=== PATIENT | female | born 1950 | race Caucasian/White ===

== ENCOUNTER → 2017-01-02 | Outpatient (CLI) | payer OTHER, MEDICARE | LOC: FIMAGING 16:26 | PROVIDERS: ATTEND Orthopaedic Surgery | DX: M22.41 Chondromalacia patellae, right knee (principal); M23.8X1 Other internal derangements of right knee; M76.31 Iliotibial band syndrome, right leg ==

== ENCOUNTER → 2017-04-10 | Outpatient (CLI) | payer OTHER, MEDICARE | LOC: FIMAGING 09:31 | PROVIDERS: ATTEND Family Medicine | DX: Z12.31 Encounter for screening mammogram for malignant neoplasm of breast (principal) | CPT/HCPCS: G0202 ==

== ENCOUNTER 2017-04-23 13:24 | Observation (INO) | payer OTHER, MEDICARE ==
--- NOTE | 2017-04-23 13:45 | EDPHY ---
H & P Time Seen by Provider: 04/23/17 13:42 HPI/ROS: CHIEF COMPLAINT: Left-sided visual change, left facial numbness HISTORY OF PRESENT ILLNESS: The patient is a 66-year-old female who presents emergency department with new onset left-sided visual field deficit. This started at 1300. 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 She felt it was present in both eyes. 15 minutes later her visual changed improved. She then developed some mild tingling in her left face. That is nearly resolved at this point. She has had no headache or neck pain. No recent trauma or fall. She has had no recent fevers or chills. REVIEW OF SYSTEMS: My complete review of systems is negative except as mentioned in the HPI. Past Medical/Surgical History: Hypothyroidism Past surgical history: Noncontributory Social history: The patient does not smoke. She drinks wine occasionally Family history: No CVA Smoking Status: Never smoked Physical Exam: Vitals noted GENERAL: Well-appearing, in no acute distress, alert. HEENT: Eyes normal to inspection, normal pharynx, no signs of dehydration. Eyelids: Normal inspection. Conjunctiva and sclera: Normal inspection. Not injected. Corneas: Normal inspection. EOMs: Intact. Pupils: PERRL, normal accommodation. Posterior segments: Normal funduscopic exam NECK: No thyromegaly, no lymphadenopathy, supple. RESPIRATORY: Clear to auscultation bilaterally, no rales, rhonchi or wheezing. CVS: Regular rate and rhythm, no rubs, murmurs, or gallops. ABDOMEN: Soft, nontender, nondistended, no organomegaly. BACK: Normal to inspection, no CVA tenderness. SKIN: Normal color, no rash, warm, dry. No pallor. EXTREMITIES: No pedal edema, no calf tenderness, no Homans sign or cords, no joint swelling. NEURO/PSYCH: Higher functions: Alert and Oriented x3. Normal speech and cognition. Normal mood and affect. No visual field cuts. Cranial nerves: Normal as tested. Cerebellar: Normal as tested. Good finger to nose, good [id number], normal gait. Peripheral exam: Normal motor exam. Normal sensation. Normal reflexes. I performed an NIHSS. Score was 0 Constitutional: Initial Vital Signs Temperature (C) 36.5 C 04/23/17 13:29 Heart Rate 62 04/23/17 13:29 Respiratory Rate 18 04/23/17 13:29 Blood Pressure 133/80 H 04/23/17 13:29 O2 Sat (%) 99 04/23/17 13:29 O2 Delivery Mode Room Air Allergies/Adverse Reactions: acetaminophen [From Tylenol] Allergy (Verified 04/23/17 13:26) ampicillin Allergy (Verified 04/23/17 13:26) aspirin Allergy (Verified 04/23/17 13:26) ibuprofen [From Advil] Allergy (Verified 04/23/17 13:26) Sulfa (Sulfonamide Antibiotics) Allergy (Verified 04/23/17 13:26) multiple allergies Allergy (Uncoded 05/27/14 16:41) Home Medications: Medication Instructions Recorded ARMOUR THYROID 05/27/14 Fish Oil 05/27/14 Vitamin B Activated 05/27/14 Medical Decision Making - Diagnostics EKG Interpretation: EKG shows normal sinus rhythm, [normal rate, normal axis, normal intervals]. There are [no ST or T-wave abnormalities]. [EKG is normal as interpreted by me]. Imaging Results: Imaging Impressions Head CT 04/23/17 13:50 Impression: Cortical nodule within the high right parietal lobe and subcortical nodule high left parietal lobe, with both lesions demonstrating vasogenic edema, without herniation. The bilaterality of these lesions suggests metastatic disease as the most likely etiology. Recommend MRI of the brain without and with contrast for further characterization. Results called to Dr. Alonzo at 2:15 PM. ED Course/Re-evaluation: I met the patient on arrival to the emergency department. Patient stated her symptoms started at 1300. When I evaluated the patient patient she had an NIHSS equals 0 I discussed the plan with the patient answered all her questions. An IV was placed. Laboratory studies and head CT were ordered. I rechecked the patient. She had no focal deficits on reexamination. Head CT: Please refer the dictated report. I discussed the case with Dr. Frederick. The patient has bilateral parietal lobe lesions. There is mild edema. Dr. Frederick recommended MRI imaging. MRI with and without contrast was ordered. I discussed the results with the patient. On re-evaluation she had no symptoms. She had a nonfocal neuro exam. I discussed the case with Dr. Curiel from the hospitalist service. He will admit the patient for further care. Differential Diagnosis: My differential includes but is not limited to ischemic CVA, hemorrhagic CVA, dissection, aneurysm, CRAO, CRVO, retinal detachment, electrolyte abnormality, sugar abnormality, ACS, acute WI - Data Points Laboratory Results: Laboratory Results 04/23/17 13:50 04/23/17 13:49 04/23/17 04/23/17 04/23/17 13:50 13:50 13:49 WBC 8.19 10^3/uL 10^3/uL (3.80-9.50) RBC 5.03 10^6/uL 10^6/uL (4.18-5.33) Hgb 15.6 g/dL g/dL (12.6-16.3) Hct 45.7 % % (38.0-47.0) MCV 90.9 fL fL (81.5-99.8) MCH 31.0 pg pg (27.9-34.1) MCHC 34.1 g/dL g/dL (32.4-36.7) RDW 13.8 % % (11.5-15.2) Plt Count 315 10^3/uL 10^3/uL (150-400) MPV 11.0 fL fL (8.7-11.7) Neut % (Auto) 54.9 % % (39.3-74.2) Lymph % (Auto) 34.8 % % (15.0-45.0) [place] % (Auto) 8.1 % % (4.5-13.0) Eos % (Auto) 1.1 % % (0.6-7.6) Baso % (Auto) 0.9 % % (0.3-1.7) Nucleat RBC Rel Count 0.0 % % (0.0-0.2) Absolute Neuts (auto) 4.50 10^3/uL 10^3/uL (1.70-6.50) Absolute Lymphs (auto) 2.85 10^3/uL 10^3/uL (1.00-3.00) Absolute Monos (auto) 0.66 10^3/uL 10^3/uL (0.30-0.80) Absolute Eos (auto) 0.09 10^3/uL 10^3/uL (0.03-0.40) Absolute Basos (auto) 0.07 10^3/uL 10^3/uL (0.02-0.10) Absolute Nucleated RBC 0.00 10^3/uL 10^3/uL (0-0.01) Immature Gran % 0.2 % % (0.0-1.1) Immature Gran # 0.02 10^3/uL 10^3/uL (0.00-0.10) PT 12.6 SEC SEC (12.0-15.0) INR 0.95 (0.83-1.16) APTT 32.0 SEC SEC (23.0-38.0) Sodium 140 mEq/L mEq/L (134-144) Potassium 3.7 mEq/L mEq/L (3.5-5.2) Chloride 103 mEq/L mEq/L (97-110) Carbon Dioxide 23 mEq/l mEq/l (22-31) Anion Gap 14 mEq/L mEq/L (8-16) BUN 15 mg/dL mg/dL (7-23) Creatinine 0.6 mg/dL mg/dL (0.6-1.0) Estimated GFR > 60 Glucose 83 mg/dL mg/dL (70-100) Calcium 9.6 mg/dL mg/dL (8.5-10.4) Troponin I Pending Departure - Departure Disposition: Home, Routine, Self-Care Clinical Impression: Hemianopia Condition: Good Instructions: Blurred Vision (ED) Referrals: Kenyatta De Guzman MD [Primary Care Provider] - As per Instructions
--- NOTE | 2017-04-23 13:46 | CPEKG ---
Heart Rate: 58 RR Interval: 1034 P-R Interval: 164 QRSD Interval: 90 QT Interval: 408 QTC Interval: 401 P Erie: 40 QRS Erie: 9 T Wave Erie: 65 EKG Severity - NORMAL ECG - EKG Impression: SINUS RHYTHM Electronically Signed By: Lena Alonzo 23-Apr-2017 15:37:30
[2017-04-23] MEDS ORDERED: NS 500 ML IV ONE (13:49)
[2017-04-23 14:18] LABS: % IMMATURE GRANULYOCYTES 0.2 % (0.0-1.1); ABSOLUTE IMMATURE GRANULOCYTES 0.02 10^3/uL (0.00-0.10); ADD DIFF? NO; ADD MORPH? NO; ADD SCAN? NO; ATYPICAL LYMPHOCYTE FLAG 0 (0-99); FRAGMENT RBC FLAG 0 (0-99); HEMATOCRIT 45.7 % (38.0-47.0); HEMOGLOBIN 15.6 g/dL (12.6-16.3); LEFT SHIFT FLG 0 (0-99); LIPEMIA HEMOLYSIS FLAG 90 (0-99); MEAN CELL HEMOGLOBIN CONCENTR. 34.1 g/dL (32.4-36.7); MEAN CELL VOLUME 90.9 fL (81.5-99.8); PLATELET CLUMPS FLAG 10 (0-99); PLATELET COUNT 315 10^3/uL (150-400); RED BLOOD CELL COUNT 5.03 10^6/uL (4.18-5.33); RED CELL DISTRIBUTION WIDTH 13.8 % (11.5-15.2)
[2017-04-23 14:24] LABS: INR 0.95 (0.83-1.16); PROTIME(PATIENT) 12.6 SEC (12.0-15.0)
[2017-04-23 14:32] LABS: ANION GAP 14 mEq/L (8-16); CALCIUM 9.6 mg/dL (8.5-10.4); CARBON DIOXIDE 23 mEq/l (22-31); CHLORIDE 103 mEq/L (97-110); CREATININE 0.6 mg/dL (0.6-1.0); GLOMERULAR FILTRATION RATE > 60; GLUCOSE 83 mg/dL (70-100); POTASSIUM 3.7 mEq/L (3.5-5.2); SODIUM 140 mEq/L (134-144)
[2017-04-23] MEDS ORDERED: ONDANSETRON DISINTEGRATING 4 MG TAB PO PRN (14:36)
[2017-04-23] MEDS ORDERED: ONDANSETRON 4 MG/2 ML VIAL IVP PRN (14:36)
[2017-04-23 14:44] LABS: TROPONIN I < 0.012 ng/mL (0-0.034)
--- NOTE | 2017-04-23 15:04 | PDGENHP ---
History and Physical - Chief Complaint Acute Hemianopsia - History of Present Illness PCP: Dr. Joshi HPI: 66-year-old female presenting with acute lorene anopsia characterized as left-sided visual field cut, completely black, with onset of symptoms at 12:53 p.m. on the day of presentation, duration approximately 15-20 minutes. Was associated with some paresthesias located along the left jaw radiating into the left ear, as well as a subsequent headache. The patient reports that the symptoms began while she was at rest and she can specifically described them as left visual field cut noted on people's faces as well as a clock. She reports that both eyes were affected as the visual field cut persisted despite her opening and closing each eye individually. The symptoms have occurred in the context of approximately 1 month of physical spatial changes most notable in her bilateral hands. The patient has noted these changes because she is a professional seamstress and she has noted that she is having difficulty swallowing unless she is specifically looking at the object in question. She has also noted reduced spatial awareness when she sits down to use the bathroom and is only able to find her toilet paper if she is directly looking at it. She otherwise denies any hematochezia, hematuria, melena, cough, fever, chills, but she has experienced intentional weight loss over the past several months. History Information - Allergies/Home Medication List Allergies/Adverse Reactions: acetaminophen [From Tylenol] Allergy (Verified 04/23/17 13:26) ampicillin Allergy (Verified 04/23/17 13:26) aspirin Allergy (Verified 04/23/17 13:26) ibuprofen [From Advil] Allergy (Verified 04/23/17 13:26) Sulfa (Sulfonamide Antibiotics) Allergy (Verified 04/23/17 13:26) multiple allergies Allergy (Uncoded 05/27/14 16:41) Home Medications: ARMOUR THYROID 05/27/14 [Last Taken Unknown] Fish Oil 05/27/14 [Last Taken Unknown] Vitamin B Activated 05/27/14 [Last Taken Unknown] I have personally reviewed and updated: family history, medical history, social history, surgical history - Past Medical History Additional medical history: noncritical carotid stenosis monitored annually. Hypothyroidism. Mild hyperlipidemia. Diverticulosis - Surgical History Additional surgical history: most recent colonoscopy 7 years ago. Most recent Pap smear 2 years ago with subsequent hysterectomy - Family History Additional family history: father with renal cell carcinoma as well as atrial fibrillation, mother with coronary artery disease - Social History Smoking Status: Never smoked Alcohol Use: Occasionally Drug Use: None Additional social history: normally physically active and engages in hikes, she works as a seamstress Review of Systems ROS: 10pt was reviewed & negative except for what was stated in HPI & below EENMT: Reports: other (left-sided lorene anopsia) Neurological: Reports: other ( left facial paresthesia) Physical Exam Temp Pulse Resp BP Pulse Ox 36.5 C 62 18 133/80 H 99 04/23/17 13:29 04/23/17 13:29 04/23/17 13:29 04/23/17 13:29 04/23/17 13:29 Constitutional: no apparent distress, appears nourished, not in pain Eyes: PERRL, anicteric sclera, EOMI Ears, Nose, Mouth, Throat: moist mucous membranes, hearing normal, ears appear normal, no oral mucosal ulcers Cardiovascular: regular rate and rhythym, no murmur, rub, or gallop, No edema Respiratory: no respiratory distress, no rales or rhonchi, clear to auscultation Gastrointestinal: normoactive bowel sounds, soft, non-tender abdomen, no palpable masses Genitourinary: no bladder fullness, no bladder tenderness Skin: warm, normal color, no rashes or abrasions, no fluctuance, no induration, No mottled Neurologic: AAOx3, sensation intact bilaterally, CN II-XII Intact, other ( rqvyai-lq-kjsk intact, wcnd-db-noso intact), No weakness, No facial droop Psychiatric: interacting appropriately, not anxious, not encephalopathic, thought process linear Lab Data & Imaging Review 04/23/17 13:50 04/23/17 13:49 WBC 8.19 10^3/uL (3.80-9.50) 04/23/17 13:50 RBC 5.03 10^6/uL (4.18-5.33) 04/23/17 13:50 Hgb 15.6 g/dL (12.6-16.3) 04/23/17 13:50 Hct 45.7 % (38.0-47.0) 04/23/17 13:50 MCV 90.9 fL (81.5-99.8) 04/23/17 13:50 MCH 31.0 pg (27.9-34.1) 04/23/17 13:50 MCHC 34.1 g/dL (32.4-36.7) 04/23/17 13:50 RDW 13.8 % (11.5-15.2) 04/23/17 13:50 Plt Count 315 10^3/uL (150-400) 04/23/17 13:50 MPV 11.0 fL (8.7-11.7) 04/23/17 13:50 Neut % (Auto) 54.9 % (39.3-74.2) 04/23/17 13:50 Lymph % (Auto) 34.8 % (15.0-45.0) 04/23/17 13:50 Hand % (Auto) 8.1 % (4.5-13.0) 04/23/17 13:50 Eos % (Auto) 1.1 % (0.6-7.6) 04/23/17 13:50 Baso % (Auto) 0.9 % (0.3-1.7) 04/23/17 13:50 Nucleat RBC Rel Count 0.0 % (0.0-0.2) 04/23/17 13:50 Absolute Neuts (auto) 4.50 10^3/uL (1.70-6.50) 04/23/17 13:50 Absolute Lymphs (auto) 2.85 10^3/uL (1.00-3.00) 04/23/17 13:50 Absolute Monos (auto) 0.66 10^3/uL (0.30-0.80) 04/23/17 13:50 Absolute Eos (auto) 0.09 10^3/uL (0.03-0.40) 04/23/17 13:50 Absolute Basos (auto) 0.07 10^3/uL (0.02-0.10) 04/23/17 13:50 Absolute Nucleated RBC 0.00 10^3/uL (0-0.01) 04/23/17 13:50 Immature Gran % 0.2 % (0.0-1.1) 04/23/17 13:50 Immature Gran # 0.02 10^3/uL (0.00-0.10) 04/23/17 13:50 PT 12.6 SEC (12.0-15.0) 04/23/17 13:50 INR 0.95 (0.83-1.16) 04/23/17 13:50 APTT 32.0 SEC (23.0-38.0) 04/23/17 13:50 Sodium 140 mEq/L (134-144) 04/23/17 13:49 Potassium 3.7 mEq/L (3.5-5.2) 04/23/17 13:49 Chloride 103 mEq/L (97-110) 04/23/17 13:49 Carbon Dioxide 23 mEq/l (22-31) 04/23/17 13:49 Anion Gap 14 mEq/L (8-16) 04/23/17 13:49 BUN 15 mg/dL (7-23) 04/23/17 13:49 Creatinine 0.6 mg/dL (0.6-1.0) 04/23/17 13:49 Estimated GFR > 60 04/23/17 13:49 Glucose 83 mg/dL (70-100) 04/23/17 13:49 Calcium 9.6 mg/dL (8.5-10.4) 04/23/17 13:49 Troponin I < 0.012 ng/mL (0-0.034) 04/23/17 13:49 Visualized and Interpreted EKG results: Yes EKG Interpretation: Positive for: other ( normal sinus rhythm) Assessment & Plan Assessment: 66-year-old female presenting with left-sided lorene anopsia and paresthesias in the setting of newly diagnosed brain lesions with vasogenic edema Plan: 1. Hemianopsia. Acute, new from this provider, further workup indicated. Etiologies include newly diagnosed brain lesions verses TIA versus complex migraine. - patient reports very similar symptoms approximately 38 years ago which were diagnosed as a complex migraine after further workup, she has not experienced subsequent symptoms since that time - patient does have known carotid stenosis which has been described as non flow limiting, will order outside records from her PCP office and consider CT angiogram if malignant workup is negative - monitor on telemetry given her family history of AFib and the possibility this could have been a TIA - get MRI of the brain with and without contrast if it does demonstrate overt lesions with vasogenic edema, we will initiate of malignancy workup including CT of the chest abdomen and pelvis with IV contrast as I suspect the primary may be a renal cell carcinoma - order outside records including most recent mammogram, previous mammogram in our system is from 02/11/2016 demonstrating moderate density breast tissue but negative - 2010 skin biopsy demonstrating actinic and seborrheic keratoses but patient denies any other concerning skin lesions at this time - if above is all negative, would recommend pursuing colonoscopy, has previously seen Dr. Wood - given that her head CT demonstrates no evidence of midline shift, will hold on steroids for the aforementioned lesions until MRI has been obtained - neurology consultation placed 2. Bilateral parietal lesions with vasogenic edema. Acute, new diagnosis, hold steroids as outlined above 3. Hypothyroidism. Continue home medication Diet. Cardiac Prophylaxis. High risk patient, SCDs, pharm contraindicated given possible brain lesions Code. Full Disposition. Anticipated discharge is 04/24/2017, pending further workup as outlined above. I have discussed patient's presentation with Dr. Francois, we both agree that the patient should receive an urgent workup for above and receive Neurology consultation.
[2017-04-23] MEDS ORDERED: GADOBUTROL 10 ML VIAL IVP ONE (16:05)
[2017-04-23] MEDS ORDERED: IOPAMIDOL (ISOVUE 370) 100 ML BTL IV ONE (19:09)
[2017-04-23] MEDS ORDERED: IOPAMIDOL (ISOVUE-300) 100 ML BTL ONE (19:11)
[2017-04-23] MEDS ORDERED: GOLYTELY 4000 ML BTL ONE (22:25)
[2017-04-23] MEDS ORDERED: GOLYTELY 4000 ML BTL PO ONE (22:29)
[2017-04-23] MEDS: DEXAMETHASONE 4 MG TAB PO SCH (22:48)
--- NOTE | 2017-04-23 22:53 | HOSPPROG ---
Hospitalist Progress Note Assessment/Plan: Prolonged service beyond the initial 70 minutes spent with the patient for a total of 105 minutes spent, direct patient care, [id number] with patient and her daughter, at bedside for an additional 35 minutes, from 9:50 p.m. to 10:25 p.m., addressing the following: -shared with the patient and her daughter that she most likely has metastatic malignancy -patient's daughter very supportive, patient reasonably distressed over the new diagnosis, she is fearful that this is terminal -potential diagnostic workup discussed with patient, we have agreed to pursue least invasive approach is 1st -discussed with Dr. Galarza and Dr. Wood, plan for colonoscopy 1st in a.m. to determine whether she has a primary colon lesion and if not, then we will pursue CT-guided biopsy of the left lung mass 2nd -discussed with Dr. Edwards, he has recommended initiation of dexamethasone 4 mg three times daily and he will consult with the patient in the a.m. -patient will initiate GoLYTELY prep now -will be NPO in a.m. -the plan is for her to have a tissue did sample for pathology available after her diagnostic workup tomorrow and she can most likely be discharged home with outpatient follow-up at [facility] once that has been accomplished -I would recommend close outpatient supportive counseling through our healthcare project manager -I counseled the patient that her neurologic symptoms on presentation will most likely stabilize and improve in the short term with the addition of steroids to shrink the vasogenic edema -the patient is very hesitant to initiate steroids given her history of osteoporosis and her risk of fracture, will check a vitamin D level in the a.m. and the patient may elect for rapid outpatient steroid reduction in dosage but she is amenable to initiating them at this time Objective: Vital Signs Temp Pulse Resp BP Pulse Ox 36.6 C 66 17 132/73 H 89 L 04/23/17 19:48 04/23/17 19:48 04/23/17 19:48 04/23/17 19:48 04/23/17 19:48 04/22/17 04/23/17 04/24/17 05:59 05:59 05:59 Intake Total 500 Balance 500 PT 12.6 SEC (12.0-15.0) 04/23/17 13:50 INR 0.95 (0.83-1.16) 04/23/17 13:50 ICD10 Worksheet Patient Problems: Problems Problem Status Onset Hemianopia Acute
[2017-04-24 05:01] LABS: INR 1.02 (0.83-1.16); PROTIME(PATIENT) 13.3 SEC (12.0-15.0)
[2017-04-24 05:23] LABS: ALANINE AMINOTRANSFERASE 29 IU/L (9-52); ALBUMIN 4.1 g/dL (3.5-5.0); ALKALINE PHOSPHATASE 81 IU/L (38-126); ANION GAP 9 mEq/L (8-16); ASPARTATE AMINOTRANSFERASE 35 IU/L (14-46); BILIRUBIN,TOTAL 0.5 mg/dL (0.1-1.4); CALCIUM 9.8 mg/dL (8.5-10.4); CARBON DIOXIDE 25 mEq/l (22-31); CHLORIDE 110 mEq/L (97-110); CREATININE 0.5 mg/dL (0.6-1.0); GLOMERULAR FILTRATION RATE > 60; GLUCOSE 133 mg/dL (70-100); POTASSIUM 3.7 mEq/L (3.5-5.2); SODIUM 144 mEq/L (134-144)
[2017-04-24] MEDS: DEXAMETHASONE 4 MG TAB PO SCH ×2 (08:49→17:26)
[2017-04-24] MEDS ORDERED: Herbals/Supplements -Info Only PO SCH (09:00)
[2017-04-24] MEDS ORDERED: THYROID 60 MG TAB PO SCH (09:00)
--- NOTE | 2017-04-24 09:33 | GCON ---
[f rep st] CONSULTATION NEUROLOGIC CONSULT HISTORY OF PRESENT ILLNESS: The patient is a 66-year-old woman, whom I am asked to see in neurologi c consultation regarding suspected brain metastases, with some neurologic complaints involving visio n and discoordination in the upper extremities. The patient says that she really started to notice some changes a few weeks ago, where activities such as reaching for toilet paper in the middle of night seemed surprisingly difficult. She was having trouble seeing out to her right. She has als o noticed some discoordination with her hands, such as putting her hair into a ponytail. She was no t sure what was accounting for this. She came to the emergency room yesterday, and had also noted s ome left facial numbness and some left-sided visual changes. It had started around 1300. She perce ived both eyes were affected, and it all resolved after about 15 minutes, then she got the tingling in her face. She is not having any significant headache or fever, chills, nausea, vomiting, or diar montserrat. However, she says she has just not been feeling like her usual self over the last few weeks. In the course of her workup, she had imaging obtained, with head CT, followed by brain MRI, and the changes show bilateral parietal, cortical, and subcortical ring-enhancing lesions, with a vasogenic edema, highly suspicious for metastatic disease. She has had CTA of the neck, which is unremarkabl e. She had CT scan of the chest showing a 1.5 x 1.8 x 3 cm lung mass suspicious for carcinoma. She has received Decadron for a single dose so far last night, but has not noticed any significant stokes ge in symptoms. She thinks the visual problem has not returned. She was prepping for colonoscopy t lynette, as well. PAST MEDICAL HISTORY: Notable for some [id number]-[id number] carotid stenosis, hypothyroidism, hyperlipi demia, diverticulosis. PAST SURGICAL HISTORY: She has had hysterectomy. FAMILY HISTORY: Renal cell carcinoma, atrial fibrillation, coronary disease. SOCIAL HISTORY: She never smoked, but lived in the home of a father who smoked. Occasional alcohol . She stays very physically active. ALLERGIES: Sulfa, ibuprofen, aspirin, ampicillin, Tylenol. HOME MEDICATION: [place] Thyroid. PHYSICAL EXAMINATION: VITAL SIGNS: Blood pressure 115/63, pulse of 71, respirations 14, temperatur e 36.8. GENERAL: She is well developed, in no acute distress. EYES: Clear. NECK: Supple with no bruits or masses. CARDIAC: Regular rate and rhythm. No murmur. NEUROLOGIC: She is awake and al ert and attentive, with clear and fluent speech. Pupils 3 mm and reactive. Extraocular movements a re intact. No visual field loss. Normal facial sensation and strength. Palate elevates symmetrica lly. Tongue protrudes midline. Motor exam, normal muscle bulk and tone. 5/5 strength. Sensation is preserved. Reflexes are 3+ and symmetric, with no Babinski signs. IMPRESSION: The patient has a history of neurologic dysfunction referable to the occipital lobe and parietal lobe, accounting for some of the visual complaints, discoordination, and paresthesias. Rae el has distinct lesions in the brain suspicious for metastatic cancer, but the workup will be complet ed as soon as possible to try to clarify the source, whether it is lung or colon or some other site. We had a detailed discussion about her concerns and worries. We talked about the fact that we are unable to give a prognosis at this stage, but as more data is gathered, the oncologist will be able to help guide her with potential treatment options, and the pros and cons, and potential survival r isks and benefits with any of these interventions. To some degree, she says she is not sure she wan ts to go through any of these therapies. I told her that this really is her choice to consider, and we will always respect her wishes. I agree with continuing Decadron. She does not need specific seizure medication added at this time. I am happy to follow up with her as an outpatient as needed for any neurologic questions. TOTAL UNIT TIME: 55 minutes, greater than 50% of the time counseling and coordination of care with her. /[id number]/MODL
[2017-04-24] MEDS ORDERED: LR 1,000 ML IV ONE (11:51)
[2017-04-24] MEDS ORDERED: PROPOFOL/EMULSION 500 MG/50 ML BOTTLE IV ONE (12:06)
--- NOTE | 2017-04-24 12:34 | GCON ---
[f rep st] CONSULTATION DATE OF CONSULTATION: 04/24/2017 CHIEF COMPLAINT: Abnormal CT scan. HISTORY OF PRESENT ILLNESS: I am asked to see this patient in consultation by Dr. Curiel for chief complaint of abnormal CT scan. She is a pleasant 66-year-old, known to me from prior screening colo noscopy exams, who presented with acute neurologic symptoms, and found to have evidence of likely me tastasis to the brain. Also CT scan of the chest showed a large lung mass. It is unclear, if she m ay have primary lung cancer with mets to the brain, or if there is another unknown primary. Patient did have a tubular adenoma removed on colonoscopy in 2005, although, no polyps seen on colonoscopy in 2010. She missed her recall date last year due to significant personal issues at that time. Cur rently, she has no significant bowel symptoms. There is no diarrhea or constipation. No blood in h er stools or melena. FAMILY HISTORY: There is a family history of colon polyps in her brother, but no known colon cancer . ALLERGIES: Sulfa, ibuprofen, aspirin, ampicillin and Tylenol. MEDICATIONS: On presentation are thyroid. PAST MEDICAL HISTORY: Moderate carotid stenosis, hypothyroidism, hyperlipidemia, diverticulosis, hi story of adenomatous polyps. SOCIAL HISTORY: She has never smoked. Occasional alcohol. REVIEW OF SYSTEMS: I performed a complete review of systems, which is negative except for pertinent positives and negatives noted in the HPI. PHYSICAL EXAM: VITAL SIGNS: The patient is afebrile at 36.6, BP 129/60, pulse 67. CONSTITUTIONAL: She is alert and oriented. EYES: Without scleral icterus. HENT: No oral lesions. CARDIAC: Regular rhythm. CHEST: Clear to auscultation. ABDOMEN: Positive bowel sounds. Soft, nontender. NEURO: Grossly nonfocal. SKIN: No rashes. LABORATORY DATA: Hematocrit is 45.7, with white count of 8. ProTime is normal. CT scan of the brain shows a cortical mass, high in the right parietal lobe. CT scan of the abdomen shows no evidence of metastasis or malignancy. Normal CT scan of the abdomen and pelvis. CT scan of the chest shows a 1.8 x 1.5 x 3 cm mass in the lung, likely representing bronchogenic carcinoma. ASSESSMENT: 1. Patient with lung mass and brain mass, concerning for metastasis. Differential diagnosis would include lung primary, versus other primary, with mets to lung and brain, which would include colon c ancer. 2. Patient with history of adenomatous polyps and is overdue for her surveillance exam. The patien t would like to have her colonoscopy done this admission. PLAN: We will proceed with colonoscopy for evaluation. Further recommendations to follow. Thank you for this consult. /[id number]/MODL
--- NOTE | 2017-04-24 12:42 | SUROPNOTE ---
[facility] Operative Report - Surgery Colonoscopy full note dictated Left sided tic 6 mm ascending colon polyp removed No colon masses Plan proceed with lung biopsy OK to advance diet after lung biopsy (if this will not be done today then can advance diet now) Will sign off
--- NOTE | 2017-04-24 13:05 | GPN ---
[f rep st] PROCEDURE NOTE DATE OF PROCEDURE: 04/24/2017 PROCEDURE PERFORMED: Colonoscopy with biopsy. INSTRUMENT USED: Olympus pediatric colonoscope. MEDICINES GIVEN: Anesthesia per the anesthesiologist. INDICATIONS: Patient is a 66-year-old with personal history of colon polyps. She was overdue for h er surveillance exam. Presents with new tumors in her lung and brain concerning for metastasis, mos t likely lung primary; however, as the patient is due for a colonoscopy we will proceed with this du ring this hospitalization. Prior to procedure, exam was performed including auscultation of the hea rt and lungs, which was within normal limits. The patient's mental status was appropriate. The pro cedure was explained, including the risks of bleeding, perforation, or effects of anesthesia. She g ave her informed consent. FINDINGS: The patient was placed left lateral decubitus position. Medicines were given by the anes thesiologist, and a perianal rectal exam was performed, remarkable for external hemorrhoids. Instru ment inserted into the rectum, advanced by direct visualization. Initially, the adult scope was use d but was unable to advance through the sigmoid because of acute angulation. This was removed, and a pediatric colonoscope was used with some water insufflation and was able to get through here with some application of abdominal pressure, and the scope was reached to the cecum, identified by the pr esence of the ileocecal valve and the appendiceal orifice. scope was withdrawn with insp ection of colonic mucosa. The prep was adequate for examination, although it did require some rinsi ng. A 6 mm polyp was seen in the ascending colon, removed by cold biopsy. Bleeding was minimal. N o other masses were seen. No other polyps identified. There was moderate diverticulosis in the lef t colon. Retroflexion revealed hemorrhoids. The scope was removed from the patient who tolerated t he procedure well. Time of the procedure was approximately 25 minutes. ASSESSMENT: 1. Left-sided diverticulosis. 2. 6 mm ascending colon polyp, which was removed. 3. No evidence of colonic masses or colon cancer seen on this exam. PLAN: 1. Will await biopsy of her colon polyp. 2. The patient to proceed with further workup of her lung mass, likely with lung biopsy. Okay to a dvance diet today if she is not having a lung biopsy today. 3. Consider repeat colonoscopy in 5 years as guided by the patient's overall prognosis. Thank you for the consult. /[id number]/MODL
[2017-04-24 16:30] VITALS: BP 115/75; PULSE 60; RESP 18; TEMP 98.5; O2SAT 94
--- NOTE | 2017-04-24 17:07 | PDDCSUM ---
Discharge Summary Discharge Summary: DISCHARGE DIAGNOSES: 1- new onset of neurolgic symptoms of visuospatial disorientation 2- metastatic brain lesions, new diagnosis, unknown etiology 3- L lung mass CONSULTANTS: Dr Wood PROCEDURES: Colonoscopy with colon polyps but no other masses HOSPITAL COURSE SUMMARY: This patient presented with new onset of symptoms including some visual spatial and coordination abnormalities with her hands and arms. These are actually resolving by time she comes in but MRI scan showed 2 ring enhancing brain lesions with large volume of surrounding edema. These are of uncertain etiology but a CT scan of the chest shows a left lung mass with nothing found on a CT scan of abdomen of concern. She underwent a colonoscopy here which did not disclose any malignancy or other etiology of these findings. At this time the patient has a presumed primary malignant lung lesion but we need biopsy of that lesion and further information to determine the actual nature of the brain lesions. She is being treated with Decadron and responding very well to that without side effects. At this time we are unable to get her biopsy done before this coming Thursday. She is stable for discharge to home and wishes to go home. I reviewed her case with Dr. Edwards who has agreed to arrange for outpatient follow-up in the clinic for after her biopsies. I am working with the imaging department to set her up for CT-guided needle lung biopsy this coming Thursday 3 days from now. PENDING TEST RESULTS: No pending test results at this time MEDICATION CHANGES: Addition of Decadron 4 mg three times daily FOLLOW-UP PLAN: CT scan guided lung biopsy here next week Follow up in Oncology Clinic after that Greater than 35 minutes bedside and care coordination time today
[2017-04-25] MEDS ORDERED: THYROID 60 MG TAB PO SCH (09:00)
== END 2017-04-24 18:35 | disposition home or self-care (01) ==
LOC: F3N 16:48
PROVIDERS: ADMIT Internal Medicine; ATTEND Internal Medicine
PROC: 0DBK8ZX Excision of Ascending Colon, Via Natural or Artificial Opening Endoscopic, Diagnostic (ICD-10-PCS; principal; 2017-04-23)
DX: H53.47 Heteronymous bilateral field defects (principal); C71.3 Malignant neoplasm of parietal lobe; D12.2 Benign neoplasm of ascending colon; C34.12 Malignant neoplasm of upper lobe, left bronchus or lung; K57.30 Diverticulosis of large intestine without perforation or abscess without bleeding; I65.29 Occlusion and stenosis of unspecified carotid artery; E03.9 Hypothyroidism, unspecified; Z87.19 Personal history of other diseases of the digestive system
CPT/HCPCS: 45385; 70450; 70498; 70553; 71260; 74177; 93005; 99285; A9585; G0378; J2704; Q9967

== ENCOUNTER 2017-04-27 09:38 | Day surgery (SDC) | payer OTHER, MEDICARE ==
[2017-04-27] MEDS ORDERED: MIDAZOLAM 2 MG/2 ML VIAL ONE (10:59)
[2017-04-27] MEDS ORDERED: fentaNYL 100 MCG/2 ML INJ ONE (11:00)
[2017-04-27] MEDS ORDERED: ONDANSETRON 4 MG/2 ML VIAL IVP PRN (13:47)
== END 2017-04-27 16:45 | disposition home or self-care (01) ==
LOC: FIMAGING 09:38
PROVIDERS: ATTEND Internal Medicine
PROC: 0BBG3ZX Excision of Left Upper Lung Lobe, Percutaneous Approach, Diagnostic (ICD-10-PCS; principal; 2017-04-27 12:55)
DX: C34.11 Malignant neoplasm of upper lobe, right bronchus or lung (principal); E03.9 Hypothyroidism, unspecified
CPT/HCPCS: J2250; J3010

== ENCOUNTER 2017-08-07 04:49 | Emergency (ER) | payer OTHER, MEDICARE ==
[~2017-08-07 04:49] MED LIST: EPINEPHrine 1 MG/10 ML SYR IVP ONE
[2017-08-07] MEDS ORDERED: EPINEPHrine 1 MG/10 ML SYR IVP ONE (04:52)
--- NOTE | 2017-08-07 05:06 | EDPHY ---
H & P HPI/ROS: HPI CHIEF COMPLAINT: Cardiac arrest HISTORY OF PRESENT ILLNESS: This patient is 66-year-old female per EMS has stage IV lung cancer, history of pulmonary embolism, presents emergency room in cardiac arrest. 911 was called by family members the patient started complaining of shortness of breath and gasping for air at home. She then gasping for breath and vomited. 911 was called. EMS arrived to find her cardiac arrest pulseless and apneic. They started ACLS protocol. Multiple rounds of CPR. They did give 1 round of epinephrine. They did have a sinus tachycardia briefly at 1 point. With weak pulses. She then subsequently lost her pulses and went into PA. They continued CPR brought her to the emergency room. Upon arrival to the emergency room she has no pulse. She is apneic. We initially started CPR 1 more round of ACLS protocol with 1 mg epinephrine however her daughter showed up. She states that she is a DNR. She would not want any aggressive measures including ventilation or life support, CPR. Due to this we did honor the patient's wishes and stops CPR. She was found to be agonal with no pulses with asystole on the monitor. Her time of 4:53 a.m.. Her daughter was at bedside when this occurred. Her daughter was comfortable with this. She would like to on her mom's wishes. Past Medical History: Lung cancer, pulmonary embolism Past Surgical History: No recent surgery Social History: Lives locally daughter at bedside Family History: Noncontributory ROS REVIEW OF SYSTEMS: Limited due to patient's clinical state. Exam Constitutional unresponsive, cardiac arrest, CPR in progress Eyes fixed and dilated 5 mm, minimally reactive light HENT cyanotic. Respiratory apneic Cardiovascular no pulse. Gastrointestinal soft, distended. Genitourinary no CVA tenderness. Musculoskeletal does not move any extremities. Cool model. No peripheral pulses. Skin cool to touch cyanotic, extremities mild Neurologic unresponsive Heme/Lymph/Immune no lymphadenopathy. Differential Diagnosis: Includes but is not limited cardiac arrest, massive pulmonary embolism leading to cardiac arrest, cardiopulmonary arrest, cardiac arrhythmia Medical Decision Making: Patient initially had multiple rounds of ACLS protocol. Brief episode of Rosc. ACLS protocol was stop the emergency room at the daughter's request to on her DNR. Daughter requested that we stopped all resuscitation efforts as she has stage IV lung cancer. Has advance directives that would not want any aggressive measures including life support, ventilator, CPR. Time of 4:53 a.m.. Critical Care: Total Critical Care Time Spent Managing this Patient: 20 Minutes. This time was spent Exclusively with this patient. This Care was exclusive of procedures. The Organ System/life at risk was cardiopulmonary arrest This Patient was in Critical Condition because cardiopulmonary arrest Source: Family, EMS - Medical/Surgical History Hx Asthma: No Hx Chronic Respiratory Disease: No Hx Diabetes: Yes Hx Cardiac Disease: No Hx Renal Disease: No Hx Cirrhosis: No Hx Alcoholism: No Hx HIV/AIDS: No Hx Splenectomy or Spleen Trauma: No Other PMH: 4 foot surgeries and 3 shoulder surgeries/hysterectomy, hypothyroid - Social History Smoking Status: Never smoked Allergies/Adverse Reactions: acetaminophen [From Tylenol] Allergy (Verified 04/24/17 18:06) ampicillin Allergy (Verified 04/24/17 18:06) aspirin Allergy (Verified 04/24/17 18:06) ibuprofen [From Advil] Allergy (Verified 04/24/17 18:06) Sulfa (Sulfonamide Antibiotics) Allergy (Verified 04/24/17 18:06) multiple allergies Allergy (Uncoded 04/24/17 18:06) Home Medications: Medication Instructions Recorded Herbals/Supplements -Info Only 1 ea PO DAILY 04/23/17 Thyroid,Pork [[place] Thyroid] 30 mg PO SUTUTHSA 04/23/17 Thyroid,Pork [[place] Thyroid] 45 mg PO MOWEFR 04/23/17 Dexamethasone [Decadron 4 MG (*)] 4 mg PO TID #90 tab 04/24/17 Departure - Departure Disposition: Clinical Impression: Cardiopulmonary arrest Condition: Critical Referrals: Kenyatta De Guzman MD [Primary Care Provider] - As per Instructions
== END 2017-08-07 07:23 | disposition expired ==
LOC: EDUNIT#
PROC: 5A12012 Performance of Cardiac Output, Single, Manual (ICD-10-PCS; principal; 2017-08-07)
DX: I46.9 Cardiac arrest, cause unspecified (principal); E11.9 Type 2 diabetes mellitus without complications; Z85.118 Personal history of other malignant neoplasm of bronchus and lung